=== PATIENT | female | born 1990 | race Hispanic/Latino ===

== ENCOUNTER 2022-10-11 19:03 | Emergency (ER) | payer OTHER, SELFPAY ==
[2022-10-11 19:19] VITALS: BP 135/73; PULSE 82; RESP 17; TEMP 37.1; O2SAT 98; BMI 37.1
[2022-10-11 20:26] VITALS: BP 124/69; PULSE 98; RESP 18; O2SAT 98
--- NOTE | 2022-10-11 20:28 | ED.WOUNDLAC ---
HPI - Wound/Laceration General Chief Complaint: Wound/Laceration Stated Complaint: RT TOENAIL RIPPED OFF Time Seen by Provider: 10/11/22 19:14 Source: patient Mode of arrival: Ambulatory History of Present Illness HPI narrative: 32F nonsmoker with noncontributory medical history presents with a chief complaint of an accidental injury to her right great toe just prior to arrival. She was wearing flip-flops and ran her toe over with a garbage can and lifted the toenail up and it has bled a bit and caused pain. Her tetanus is up-to-date. She denies any other injury and is otherwise well and free of complaint. Related Data Home Medications Medication Instructions Recorded Confirmed [OTC LAXATIVE] ##0 04/29/17 Previous Rx's Medication Instructions Recorded benzonatate 100 mg capsule 100 mg PO BID PRN #20 caps 04/29/17 (Tessalon Perles) docusate sodium 100 mg capsule 100 mg PO BID PRN #20 caps 04/29/17 (Colace) Allergies Allergy/AdvReac Type Severity Reaction Status Date / Time No Known Drug Allergies Allergy Verified 10/11/22 19:19 Review of Systems Review of Systems Narrative: GENERAL: Denies chills, fatigue, malaise, fever, sweats. HEENT: Denies sinus pain, ear pain, sore throat, difficulty swallowing, dizziness. RESPIRATORY: Denies dyspnea, cough, wheezing, hemoptysis, sputum. CARDIOVASCULAR: Denies chest pain, palpitations, orthopnea, edema, GASTROINTESTINAL: Denies nausea, vomiting, abdominal pain, diarrhea, constipation, melena. : Denies dysuria, frequency, incontinence, hematuria, urinary retention. MUSCULOSKELETAL: See HPI SKIN: Denies rash, skin lesions, or other NEUROLOGIC: Denies weakness, headache, numbness, change in speech, confusion, seizures, incoordination. PSYCHIATRIC: No concerning psychosocial issues. 12 point review of systems is negative except for those stated above Patient History Social History Smoking Status: Never smoker Smoking Status: Never smoker alcohol intake frequency: a few times a month Substance Use Type: does not use Exam Narrative Exam Narrative: GEN: AOx3 and in mild distress EYES: Pupils are equal, round, and reactive to light and accommodation. Extraoccular muscles are intact bilaterally. There is no subconjunctival hemorrhage or exudate. CHEST: Lungs are clear to auscultation bilaterally and free of wheezes, rales, or rhonchi. Heart rate is regular rhythm, there are no murmurs, clicks, rubs, or gallops. There is no chest wall tenderness. ABD: Abdomen is soft and nontender. There is no guarding or rebound. Bowel sounds are normal in all 4 quadrants. There is no mass or organomegaly. EXT: Right great toe with toenail partially lifted, evidence of bleeding has resolved, no suspicion of bony injury, no foreign body. Full painless ROM of all extremities with no loss of sensation or strength. SKIN: Warm, pink, and dry. No erythema or rash Initial Vital Signs Initial Vital Signs: Vital Signs Temperature 98.7 F 10/11/22 19:19 Pulse Rate 82 10/11/22 19:19 Respiratory Rate 17 10/11/22 19:19 Blood Pressure 135/73 10/11/22 19:19 Pulse Oximetry 98 10/11/22 19:19 Oxygen Delivery Method Room Air 10/11/22 19:19 Course Course Course Narrative: wound cleaned, sized for fracture shoe Vital Signs Vital signs: Vital Signs - 8 hr 10/11/22 19:19 10/11/22 20:26 Temperature 98.7 F Pulse Rate 82 98 H Respiratory Rate 17 18 Blood Pressure 135/73 124/69 Pulse Oximetry 98 98 Oxygen Delivery Method Room Air Room Air MDM - Wound/Laceration MDM Narrative Medical decision making narrative: [32] year old patient presents with right great toe injury Multiple etiologies for patient's symptoms considered including, but not limited to: [nail injury, no ongoing bleeding] Prior Charts reviewed in our EMR Primary Historian: patient Patient's symptoms improved over duration of stay with above-stated therapies. No need to remove nail, no need to repair nail bed Findings and discharge diagnosis discussed with patient/family followed by verbalization of understanding Return precautions discussed with patient/family whom verbalize understanding of diagnosis and plan Discharge Plan Departure Patient Disposition: Home Clinical Impression: Injury of toe on right foot Activity Restrictions/Additional Instructions: *You have been diagnosed with [right great toe injury. As we discussed your history and physical exam are reassuring and there is no evidence of fracture, need to remove the nail or perform suture repair] *What to do: *Please continue to take your regular medications as directed. [ ] New medication prescriptions sent to your pharmacy: [ ] [ ] New medication written as a paper prescription [ ] No new medications given *Please follow up with your primary care provider in 2-3 days, call for an appointment. Let them know you were seen in the Emergency Department and that we ask that you be seen in follow up. We will electronically transmit a record of today's note if your PCP is in our system *If you do not have a primary care provider please contact the [facility] Resource line at [phone]. They will ask some questions about your medical history and help get you set up with a doctor in the community. *Return to Emergency Department if you should have any new, worsening or concerning symptoms, such as [fever greater than 101 F, shaking chills, worsening pain, persistent vomiting or other bothersome symptoms] Prescriptions: No Action [OTC LAXATIVE] Qty: 0 benzonatate [Tessalon Perles] 100 MG capsule 100 mg PO BID PRNQty: 20 0RF docusate sodium [Colace] 100 MG capsule 100 mg PO BID PRNQty: 20 0RF Stand Alone Forms: Patient Portal/API
[2022-10-11 21:32] VITALS: BP 128/70; PULSE 82; RESP 16; TEMP 36.7; O2SAT 98
== END 2022-10-11 21:35 | disposition home or self-care (01) ==
PROVIDERS: Emergency Provider Emergency Medicine
DX: S99.921A Unspecified injury of right foot, initial encounter (principal); W22.8XXA Striking against or struck by other objects, initial encounter
CPT/HCPCS: 99281; 99282

== ENCOUNTER 2024-06-09 20:07 | Emergency (ER) | payer OTHER, SELFPAY ==
[2024-06-09 20:15] VITALS: BP 140/85; PULSE 86; RESP 16; TEMP 36.6; O2SAT 99; BMI 37.8
[2024-06-09 21:07] LABS: Add Manual Diff / Slide Review NO; Basophils Absolute Auto 100 /uL (0-100); Basophils Percent Auto 0.9 % (0-2); Eosinophils Absolute Auto 300 /uL (0-450); Eosinophils Percent Auto 2.5 % (2-4); Hematocrit 41.2 % (36-46); Hemoglobin 13.8 g/dL (12.0-16.0); Lymphocytes Absolute Auto 3400 /uL (1100-4500); Lymphocytes Percent Auto 33.4 % (25-40); Mean Corpuscular HGB Conc 33.5 % (30-36); Mean Corpuscular Hemoglobin 29.4 PG (26-34); Mean Corpuscular Volume 87.5 fL (80-100); Monocytes Absolute Auto 600 /uL (0-900); Monocytes Percent Auto 5.5 % (3-14); Neutrophils Absolute Auto 5900 /uL (1500-7000); Neutrophils Percent Auto 57.7 % (50-75); Platelet Count 408 X10^3/uL (150-400); Red Cell Distribution Width 12.8 % (11.6-14.8); White Blood Cell Count 10.2 X10^3/uL (4.5-11.0)
[2024-06-09 21:21] LABS: Alanine Aminotransferase 20 IU/L (<35); Albumin 4.5 g/dL (3.5-5.0); Albumin Globulin Ratio 1.4 (1.0-2.8); Alkaline Phosphatase 50 U/L (38-126); Aspartate Aminotransferase 27 IU/L (14-36); BUN Creatinine Ratio 16.4 (6-22); Bilirubin Total 0.4 mg/dL (0.2-1.3); Blood Urea Nitrogen 11 mg/dL (7-17); Calcium 9.4 mg/dL (8.4-10.2); Carbon Dioxide 26 mmol/L (22-32); Chloride 106 mmol/L (98-107); Estimated Glomerular Filt Rate > 60 mL/min (>60); Globulin 3.3 g/dL (1.7-4.1); Glucose 95 mg/dL (70-100); HEMOLYSIS 43 (0-50); Lipase 208 U/L (23-300); Potassium 3.9 mmol/L (3.4-5.1); Sodium 140 mmol/L (137-145); Total Protein 7.8 g/dL (6.3-8.2)
--- NOTE | 2024-06-09 21:25 | ED_ITS ---
HPI - Sepsis General Chief Complaint: Abdominal Pain Mode of arrival: Ambulatory Source: patient Limitations: no limitations Evaluation Sepsis Screen: No Definite Risk Sepsis Infection Criteria Present: None Narrative: Otherwise healthy 34-year-old woman who presents complaining of supraumbilical pain sometimes significant enough that it radiates up into the left quadrant worse with heavy lifting bending and stretching but getting to the point where the pain is enough that she felt like further evaluation warranted. She has not been nauseated, she is having normal bowel movements, no blood in her stool, no diarrhea. He has never had similar symptoms previously Review of Systems Review of Systems Narrative: Pertinent positive and negative findings as per HPI Patient History Social History Smoking Status: Never smoker Smoking Status: Never smoker alcohol intake frequency: a few times a month Exam Initial Vital Signs Initial Vital Signs: Vital Signs Temperature 98 F 06/09/24 20:15 Pulse Rate 86 06/09/24 20:15 Respiratory Rate 16 06/09/24 20:15 Blood Pressure 140/85 06/09/24 20:15 Pulse Oximetry 99 06/09/24 20:15 Oxygen Delivery Method Room Air 06/09/24 20:15 General: Healthy appearing, in no acute distress. Able to give a complete and coherent history. Well-nourished well-developed HEENT: Moist mucous membranes, normal sclera with reactive pupils, Respiratory: Lungs are clear to auscultation, no wheezing no rales no rhonchi. Full and symmetrical air movement Cardiac: Regular rate and rhythm no murmurs no bruits Abdomen: Soft, minor area of tenderness with small palpable fascial defect just superior to the umbilicus. No rebound or guarding. No flank pain Skin: Warm and dry, no rashes Neurologic: Grossly neurologically intact with no obvious asymmetries or abnormalities Extremities: No trauma, well perfused Psych: Cooperative, appropriate insight and affect Course Orders Ordered: ED Orders 06/09/24 20:50 Complete Blood Count AUTO DIFF Stat Comprehensive Metabolic Panel Stat Lipase Stat 06/09/24 21:27 US abdomen limited Stat 06/09/24 21:54 CT abdomen pelvis w con Stat Ondansetron HCl (Ondansetron 4 Mg/2 Ml Inj) 4 mg IV NOW PRN PRN Reason: Nausea And Vomiting Ondansetron HCl (Ondansetron 4 Mg Odt) 4 mg PO NOW PRN PRN Reason: Nausea And Vomiting Discontinued Medications Ketorolac Tromethamine (Ketorolac 30 Mg/Ml Vial) 15 mg IV NOW ONE Stop: 06/09/24 21:55 Last Admin: 06/09/24 22:36 Dose: 15 mg Documented By: SHAMIR Vital Signs Vital signs: Vital Signs - 8 hr 06/09/24 20:15 06/09/24 22:41 06/09/24 22:42 Temperature 98 F Pulse Rate 86 Respiratory Rate 16 Blood Pressure 140/85 112/73 Pulse Oximetry 99 100 Oxygen Delivery Method Room Air 06/09/24 22:42 06/09/24 23:00 06/09/24 23:30 Temperature Pulse Rate 65 63 64 Respiratory Rate Blood Pressure Pulse Oximetry 100 99 100 Oxygen Delivery Method 06/10/24 00:00 06/10/24 00:24 06/10/24 00:25 Temperature Pulse Rate 59 L 64 Respiratory Rate 18 Blood Pressure 113/80 Pulse Oximetry 99 98 Oxygen Delivery Method Sepsis Evaluation (ED) Triage Screening Sepsis Screen: No Definite Risk Level 1 - Infection Sepsis Infection Criteria Present: None Response It is my opinion that his patient have a likely infectious etiology for meeting sepsis criteria: Does Not Fluid calculation based on 30 mL/kg within 1hr of criteria: N/A Antibiotics initiated within 1 hr of Sepis dx: No (n/a) Tissue Perfusion Reassessed within 6 hrs of infusion start time: No (n/a) MDM - Sepsis Lab Data 06/09/24 20:50 06/09/24 20:50 Labs: Lab Results 06/09/24 Range/Units 20:50 WBC 10.2 (4.5-11.0) X10^3/uL RBC 4.70 (4.0-5.2) X10^6/uL Hgb 13.8 (12.0-16.0) g/dL Hct 41.2 (36-46) % MCV 87.5 (80-100) fL MCH 29.4 (26-34) PG MCHC 33.5 (30-36) % RDW 12.8 (11.6-14.8) % Plt Count 408 H (150-400) X10^3/uL Neut % (Auto) 57.7 (50-75) % Lymph % (Auto) 33.4 (25-40) % [place] % (Auto) 5.5 (3-14) % Eos % (Auto) 2.5 (2-4) % Baso % (Auto) 0.9 (0-2) % Neut # (Auto) 5900 (0404-1459) /uL Lymph # (Auto) 3400 (8331-7734) /uL [place] # (Auto) 600 (0-900) /uL Eos # (Auto) 300 (0-450) /uL Baso # (Auto) 100 (0-100) /uL Sodium 140 (137-145) mmol/L Potassium 3.9 (3.4-5.1) mmol/L Chloride 106 (98-107) mmol/L Carbon Dioxide 26 (22-32) mmol/L BUN 11 (7-17) mg/dL Creatinine 0.67 (0.52-1.04) mg/dL Estimated GFR > 60 (>60) mL/min BUN/Creatinine Ratio 16.4 (6-22) Glucose 95 (70-100) mg/dL Calcium 9.4 (8.4-10.2) mg/dL Total Bilirubin 0.4 (0.2-1.3) mg/dL AST 27 (14-36) IU/L ALT 20 (<35) IU/L Alkaline Phosphatase 50 (38-126) U/L Total Protein 7.8 (6.3-8.2) g/dL Albumin 4.5 (3.5-5.0) g/dL Globulin 3.3 (1.7-4.1) g/dL Albumin/Globulin Ratio 1.4 (1.0-2.8) Lipase 208 (23-300) U/L Imaging Data CT scan - abdomen/pelvis: Radiologist's Impression: PROCEDURE: CT ABDOMEN PELVIS W CON INDICATIONS: ? Incarcerated supraumbilical hernia TECHNIQUE: After the administration of intravenous contrast, axial sections acquired from the lung bases to the pubic symphysis. Coronal and sagittal reformats were performed. For radiation dose reduction, the following was used: automated exposure control, adjustment of mA and/or kV according to patient size. COMPARISON: None. FINDINGS: Image quality: Diagnostic. Lower Chest: No significant findings. ABDOMEN: Liver: No solid mass. Gallbladder: No radiopaque gallstones or wall thickening. Biliary ducts: No biliary dilation. Pancreas: No ductal dilation. Spleen: Size is within normal limits. Adrenal Glands: No adrenal nodules. Kidneys and Ureters: No hydronephrosis. No solid mass. No complex renal cystic lesion which requires follow up. Stomach and Bowel: Normal colonic caliber, without significant wall thickening. Peritoneum: No abnormal intraperitoneal fluid. No free air. Ventral Wall: Small periumbilical ventral hernia contains fat without bowel involvement. There is adjacent edema in the subcutaneous fat. No abscess Abdominal Nodes: No retroperitoneal or mesenteric adenopathy by size criteria. Vessels: Aorta and inferior vena cava are normal in size. PELVIS: Pelvic Organs: Unremarkable. Bladder: No bladder wall thickening, accounting for underdistention. Pelvic Nodes: No enlarged lymph nodes. Miscellaneous: No inguinal hernias are seen. Bones: No aggressive osseous abnormality. IMPRESSION: Tiny periumbilical ventral hernia contains fat with surrounding edema may reflect incarcerated fat. No evidence of a bowel involvement Approved by: Corey Angulo M.D. on 06/09/2024 at 22:1 MDM Narrative Medical decision making narrative: 34-year-old woman with no significant medical history has been noticing increasing supraumbilical pain for the last week or so. Possibilities include umbilical hernia, ventral wall hernia, incarcerated hernia, muscle strain, constipation. Workup today is unremarkable. No evidence of infection, anemia, kidney failure, significant electrolyte abnormalities, pancreatitis or hepatitis. Ultrasound suggests a ventral wall defect with fat containing hernia some concern for bowel. CT scan was done and confirms ventral wall hernia contains fat with surrounding edema may reflect incarcerated fat. No evidence of a bowel involvement Findings reviewed with the patient. When she is lying flat the pain is tolerable and she declines any pain medications. Suggested outpatient follow up with General surgery to discuss whether or not this should be fixed. She is planning to become within the next year. Suggested that she make sure that the general surgeon is aware of those plans as well. She may want to defer treatment until after she is done having children so that it does not need to be repeated. Reviewed signs and symptoms incarcerated hernia, reasons to return to the emergency department, at this point there is no indication for hospitalization and she is safe for discharge Discharge Plan Departure Patient Disposition: Home Clinical Impression: Supraumbilical hernia without gangrene and without obstruction Instructions: DI for Ventral Hernia Activity Restrictions/Additional Instructions: Thank you for coming in today Your blood work was quite reassuring, your ultrasound suggested that you have a small hernia just above your belly button and there was a concern for bowel stuck in the hernia. We did a CT scan that showed that there was no bowel in the hernia. There is a small amount of fat which explains the pain. This is not a surgical emergency. When your lying flat and resting, pressing on the area to try to get that is small bit of fat back inside your belly is safe and appropriate I would recommend that you schedule an outpatient follow up with [facility], please call at [phone] to schedule an ER follow up appointment for an abdominal wall hernia. I think it will be helpful to for you to understand risks and benefits of any treatment. It is also important to consider timing of surgical intervention in relationship to timing of pregnancies as well. Using 400 mg of ibuprofen (2 [id number] pills) and 1 Tylenol every 6 hours can be very helpful in controlling pain. If you find that you are getting worse or develop any new symptoms, please feel free to return to the emergency department for further evaluation. Prescriptions: No Action [OTC LAXATIVE] Qty: 0 benzonatate [Tessalon Perles] 100 MG capsule 100 mg PO BID PRNQty: 20 0RF docusate sodium [Colace] 100 MG capsule 100 mg PO BID PRNQty: 20 0RF Stand Alone Forms: Patient Portal/API/Survey
--- NOTE | 2024-06-09 21:27 | DI.US.S_ITS ---
PROCEDURE: US ABDOMEN LIMITED INDICATIONS: supraumbilical pain? hernia TECHNIQUE: Soft tissue ultrasound was obtained of the supraumbilical intra-abdominal wall COMPARISON: None. FINDINGS: At the area of concern, there is focal fascial defect with a persistent probable ventral hernia measuring 3.6 x 1.9 x 1.7 cm. Echogenic contents of uncertain etiology. No peristalsis. Noncompressible. IMPRESSION: Probable ventral hernia appears non reducible. Consider follow-up CT abdomen and pelvis with contrast for full evaluation. Approved by: Corey Angulo M.D. on 06/09/2024 at 21:28
--- NOTE | 2024-06-09 21:54 | DI.CT.S_ITS ---
PROCEDURE: CT ABDOMEN PELVIS W CON INDICATIONS: ? Incarcerated supraumbilical hernia TECHNIQUE: After the administration of intravenous contrast, axial sections acquired from the lung bases to the pubic symphysis. Coronal and sagittal reformats were performed. For radiation dose reduction, the following was used: automated exposure control, adjustment of mA and/or kV according to patient size. COMPARISON: None. FINDINGS: Image quality: Diagnostic. Lower Chest: No significant findings. ABDOMEN: Liver: No solid mass. Gallbladder: No radiopaque gallstones or wall thickening. Biliary ducts: No biliary dilation. Pancreas: No ductal dilation. Spleen: Size is within normal limits. Adrenal Glands: No adrenal nodules. Kidneys and Ureters: No hydronephrosis. No solid mass. No complex renal cystic lesion which requires follow up. Stomach and Bowel: Normal colonic caliber, without significant wall thickening. Peritoneum: No abnormal intraperitoneal fluid. No free air. Ventral Wall: Small periumbilical ventral hernia contains fat without bowel involvement. There is adjacent edema in the subcutaneous fat. No abscess Abdominal Nodes: No retroperitoneal or mesenteric adenopathy by size criteria. Vessels: Aorta and inferior vena cava are normal in size. PELVIS: Pelvic Organs: Unremarkable. Bladder: No bladder wall thickening, accounting for underdistention. Pelvic Nodes: No enlarged lymph nodes. Miscellaneous: No inguinal hernias are seen. Bones: No aggressive osseous abnormality. IMPRESSION: Tiny periumbilical ventral hernia contains fat with surrounding edema may reflect incarcerated fat. No evidence of a bowel involvement Approved by: Corey Angulo M.D. on 06/09/2024 at 22:13
[2024-06-09] MEDS: KETOROLAC 30 MG/ML VIAL 15 MG IV (22:36)
[2024-06-09 22:41] VITALS: O2SAT 100
[2024-06-09 22:42] VITALS: BP 112/73; PULSE 65; O2SAT 100
[2024-06-09 23:00] VITALS: PULSE 63; O2SAT 99
[2024-06-09 23:30] VITALS: PULSE 64; O2SAT 100
[2024-06-10] VITALS: PULSE 59; O2SAT 99
[2024-06-10 00:24] VITALS: PULSE 64; O2SAT 98
[2024-06-10 00:25] VITALS: BP 113/80; RESP 18
== END 2024-06-10 00:40 | disposition home or self-care (01) ==
PROVIDERS: Emergency Provider Emergency Medicine
DX: K43.9 Ventral hernia without obstruction or gangrene (principal)
CPT/HCPCS: 36415; 74177; 76705; 80053; 83690; 85025; 96374; 99284; J1885; Q9967

== ENCOUNTER 2024-07-17 02:03 | Emergency (ER) | payer OTHER, SELFPAY ==
[2024-07-17 02:33] VITALS: BP 134/88; PULSE 106; RESP 18; TEMP 36.4; O2SAT 96; BMI 37.1
[2024-07-17 02:43] LABS: Strep Grp A by PCR Rapid Negative (Negative)
--- NOTE | 2024-07-17 06:34 | ED.EYEPROB ---
HPI - Eye Problem General Chief complaint: Eye Problems Stated complaint: Swollen Eyes, Sore Throat, Headache, Nose bleed Time Seen by Provider: 07/17/24 06:26 Source: patient Mode of arrival: Ambulatory History of Present Illness HPI Narrative: Patient is a 34-year-old female presenting today with right eye drainage. She reports she has had some upper respiratory symptoms similar to her seasonal allergies ongoing for the last 5 days or so. She was taking Zyrtec Tylenol Motrin. Feels like she has a mild sore throat as well. No fever or chills. However yesterday at 3:00 p.m. notes that significant drainage and eye irritation from the right thigh 8. No visual changes does not wear contacts or glasses. Related Data Home Medications Medication Instructions Recorded Confirmed [OTC LAXATIVE] ##0 04/29/17 Previous Rx's Medication Instructions Recorded benzonatate 100 mg capsule 100 mg PO BID PRN #20 caps 04/29/17 (Tessalon Perles) docusate sodium 100 mg capsule 100 mg PO BID PRN #20 caps 04/29/17 (Colace) polymyxin B sulfate 10,000 2 drp EYE-RIGHT Q4HRWA #10 mL 07/17/24 unit-trimethoprim 1 mg/mL eye drops Allergies Allergy/AdvReac Type Severity Reaction Status Date / Time No Known Drug Allergies Allergy Verified 10/11/22 19:19 Patient History alcohol intake frequency: a few times a month Exam Initial Vital Signs Initial Vital Signs: Vital Signs Temperature 97.6 F 07/17/24 02:33 Pulse Rate 106 H 07/17/24 02:33 Respiratory Rate 18 07/17/24 02:33 Blood Pressure 134/88 07/17/24 02:33 Pulse Oximetry 96 07/17/24 02:33 Oxygen Delivery Method Room Air 07/17/24 02:33 GENERAL: Well-appearing, well-nourished and in no acute distress. EYE: Of right eye significant drainage noted conjunctivae irritation with erythema ice stained with fluorescein without dye uptake PHARYNX: Mild erythema no exudate no uvula swelling or deviation CARDIOVASCULAR: peripheral pulses in tact, cap refill <2 sec RESPIRATORY: No respiratory distress, speaks in full sentences without difficulty EXTREMITIES: Normal range of motion, no clubbing or edema. Neurovascularly intact NEUROLOGICAL: Cranial nerves II through XII grossly intact. Normal gait and speech. SKIN: Warm, dry, no petechiae, no rashes or lesions. Course Orders Ordered: ED Orders 07/17/24 02:30 Strep Grp A by PCR Rapid Stat Proparacaine HCl (Proparacaine 0.5% Ophth Elizabeth) 1 drops EYE-BOTH PRN PRN PRN Reason: Pain, Mild (1-3) Discontinued Medications Fluorescein Sodium (Fluorescein 1 Mg Strip) 1 mg EYE-RIGHT NOW ONE Stop: 07/17/24 02:26 Vital Signs Vital signs: Vital Signs - 8 hr 07/17/24 02:33 Temperature 97.6 F Pulse Rate 106 H Respiratory Rate 18 Blood Pressure 134/88 Pulse Oximetry 96 Oxygen Delivery Method Room Air MDM - Eye Problem Lab Data Labs: Lab Results 07/17/24 Range/Units 02:30 Group A Strep (PCR) Negative (Negative) MDM Narrative Medical decision making narrative: Patient healthy 34-year-old female presents today with right eye drainage. She chronically has conjunctivitis. No evidence of periorbital cellulitis. No evidence of a corneal abrasion on exam either. She was also complaining of a sore throat strep is negative. Throat was mildly erythematous without uvula swelling or deviation no concern for peritonsillar or retropharyngeal abscess. Likely viral. Throat culture pending Discharge Plan Departure Patient Disposition: Home Clinical Impression: Conjunctivitis of right eye Instructions: Conjunctivitis Activity Restrictions/Additional Instructions: *You have been diagnosed with right eye conjunctivitis *What to do: *Continue to take medications as directed Erythromycin ointment at night Polytrim 2 drops right eye every 4 hours while awake I do recommend a Claritin around [facility] [id number] may have *Follow up with your primary care provider in 2-3 days or call [phone] *Return to ER if you should have increasing drainage pain blurry vision sore throat or any new, worsening or concerning symptoms Prescriptions: New polymyxin B sulf-trimethoprim 10,000 unit- 1 mg/mL drops 2 drp EYE-RIGHT Q4HRWA Qty: 10 0RF No Action [OTC LAXATIVE] Qty: 0 benzonatate [Tessalon Perles] 100 MG capsule 100 mg PO BID PRNQty: 20 0RF docusate sodium [Colace] 100 MG capsule 100 mg PO BID PRNQty: 20 0RF Stand Alone Forms: Patient Portal/API/Survey
[2024-07-17] MEDS: ERYTHROMYCIN OPHTH 1 GM OINT 1 APPLIC EYE-BOTH (06:47)
[2024-07-17] MEDS: FLUORESCEIN 1 MG STRIP EYE-RIGHT (06:50)
[2024-07-17 06:51] VITALS: BP 138/76; PULSE 89; RESP 18; O2SAT 97
== END 2024-07-17 06:51 | disposition home or self-care (01) ==
PROVIDERS: Emergency Provider Emergency Medicine
DX: H10.9 Unspecified conjunctivitis (principal); J02.9 Acute pharyngitis, unspecified
CPT/HCPCS: 87651; 99282